=== PATIENT | male | born 1980 | race Caucasian/White ===

== ENCOUNTER 2016-07-29 13:42 | Emergency (ER) | payer SELFPAY ==
--- NOTE | 2016-08-01 16:41 | ER ---
ADMIT: 07/29/2016 RM/LOC: ER [facility] MR#: [id number] [id number] ARNAV RAMIREZ [address] [place] [address] Emergency Room Report SEX: M AGE: 35 : 1980 DATE: 07/29/2016 For chief complaint, history of present illness, past medical history, medications, allergies, review of systems, please see my T-sheet. INTERIM HISTORY: The patient is a 35-year-old male, who comes in today with medical clearance for correction. He had a warrant out for his arrest. He appeared to be stable. The patient admits that he drinks alcohol daily, and alcohol is a problem for him. He denies any street drugs. Denies any complaints. Vital signs are stable. PHYSICAL EXAMINATION: Unremarkable. He is alert. Demonstrates the ability to answer questions appropriately and coherent. The patient has been cleared for correction. IMPRESSION: Medical clearance for correction. The patient is in stable condition. VANITA Zuñiga / Shemar Zuñiga MD / lavinia JOB #: [id number] CC: Shemar Zuñiga MD, Attending Physician Glen Dodson MD, Family Physician
== END 2016-07-29 13:55 | disposition home or self-care (01) ==
LOC: ER 13:42
DX: Z02.89 Encounter for other administrative examinations (principal); Z79.899 Other long term (current) drug therapy

== ENCOUNTER 2017-01-27 12:25 | Emergency (ER) | payer SELFPAY | END 2017-01-27 12:48 | DX: F10.229 Alcohol dependence with intoxication, unspecified (principal); F17.200 Nicotine dependence, unspecified, uncomplicated; Z98.890 Other specified postprocedural states; Y90.8 Blood alcohol level of 240 mg/100 ml or more ==